=== PATIENT | female | born 1940 | race Caucasian/White ===

== ENCOUNTER → 2016-09-23 | Outpatient (CLI) | payer MEDICARE, OTHER ==
[~2016-09-23] MED LIST: ALEVE220 M1 PO; BYSTOLIC PO; CALCIUM 600 +1 EAC1 PO; CENTRUM PO; CLARITIN10 M3 PO; CLARITIN10 MG PO; DIAZEPAM PO; FISH OIL 1,0001 CAP PO; FOLIC ACID PO; FOSAMAX PO; GAS-X125 M1 PO; HYZAAR 100-12.51 TAB PO; LIPITOR PO; NICORETTE GUM; NICORETTE4 MG; NORVASC PO; THIAMINE HCL100 MG PO; TUMS
--- NOTE | ~2016-09-23 | CT57 ---
[facility] A Service of [facility] RADIOLOGY TEXT RESULTS PATIENT: GISSEL LUNA LOCATION: [facility] : 38 UNIT #: [id number] AGE: [address]: Lj Gallo MD SEX: F ORDER DR: [id number] [facility] [address] [place], [place] [address] [id number] O MR#: [id number] Acc #: [id number] NAME: GISSEL LUNA : 1940 SEX: F STUDY DATE/TIME: 09/23/2016 12:10 UNIT: [facility] ROOM: STUDY DESCRIPTION: CT Chest Wo Cont Attending Physician: Lj Gallo M.D. Referring Physician: Lj Gallo M.D. Ordering Physician: Lj Gallo M.D. Primary Care Physician: Ashok Jurado M.D. MEDICAL IMAGING REPORT This report is preliminary unless electronic signature is present EXAM CT chest without contrast, 09/23/2016, 1210 hours. CLINICAL HISTORY 75-year-old woman with history of both lung cancer and breast cancer, status post radiation therapy. Patient complains of left chest pain since July 2016. 6-month followup. Observation for suspected malignant neoplasm. COMPARISON Chest CT 03/05/2016, 12/20/2015, and PET/CT 10/24/2015. TECHNIQUE Helical noncontrasted images were obtained from the thoracic inlet through the adrenal glands. Sagittal and coronal reconstructions were performed. Total exam DLP 570 mGy-cm. This CT exam was performed with one or more of the following radiation dose reduction techniques: automatic exposure control, adjustment of mA and/or kV according to patient size, and iterative reconstruction. FINDINGS Images through the thoracic inlet demonstrate stable calcifications left lobe of thyroid without discrete mass or enlargement. Images through the chest demonstrate no pathologic adenopathy. There is atherosclerotic change in the aorta and coronary arteries. Cardiac chambers, pericardium are normal. Small hiatal hernia is unchanged. The lungs again demonstrate extensive emphysematous change bilaterally. The spiculated nodule in the anterior left apex has decreased in size and density with now residual mostly linear density measuring 9 x 4 mm, previously 10 x 8 mm, likely a positive response to radiation therapy. [facility] A Service of [facility] RADIOLOGY TEXT RESULTS PATIENT: GISSEL LUNA LOCATION: [facility] : 38 UNIT #: [id number] AGE: [address]: Lj Gallo MD SEX: F ORDER DR: There are no new or developing nodules. Tiny nodule medially in the lingula and anteriorly in the right middle lobe unchanged and likely benign. Limited views through the upper abdomen demonstrate no gallstones. The adrenal glands are normal. There is a cyst in the medial mid-right kidney unchanged. IMPRESSION 1. Interval decrease in size and density of spiculated nodule in the left upper lobe, likely a positive response to radiation therapy. Residual linear density measures 9 x 4 mm, previously 10 x 8 mm. 2. Emphysematous change with no new or developing nodules or adenopathy. Dictated by... Amber Bains M.D. THIS IS AN ELECTRONICALLY VERIFIED REPORT Amber Bains M.D. at 09/23/2016 5:53 PM YAO/helen TD: 09/23/2016 14:52 JOB #: [id number] MEDICAL IMAGING REPORT COPY
--- NOTE | ~2016-09-23 | MY6 ---
[facility] A Service [facility] RADIOLOGY TEXT RESULTS PATIENT: GISSEL LUNA LOCATION: [facility] : 38 UNIT #: [id number] AGE: [address]: Lj Gallo MD SEX: F ORDER DR: [id number] [address] [address] [id number] O MR#: [id number] Acc #: [id number] NAME: GISSEL LUNA : 1940 SEX: F STUDY DATE/TIME: 09/23/2016 13:18 UNIT: [facility] ROOM: STUDY DESCRIPTION: MY Mammogram Dx Dig Pradeep Attending Physician: Lj Gallo M.D. Referring Physician: Lj Gallo M.D. Ordering Physician: Lj Gallo M.D. Primary Care Physician: Ashok Jurado M.D. MEDICAL IMAGING REPORT This report is preliminary unless electronic signature is present EXAM Bilateral digital diagnostic mammogram. DATE OF EXAM 09/23/2016 INDICATION Previous left breast cancer diagnosed in 2014 with lumpectomy. COMPARISON STUDIES 09/18/2015 and 04/04/2015. TECHNIQUE MLO and CC digital views of each breast were obtained. There is also an exaggerated lateral CC view of each breast and a straight mediolateral view of the left breast. FINDINGS The breasts are heterogenously dense. There are no masses or abnormal calcifications. What was presumably seen as seroma in the medial left breast has diminished in density. IMPRESSION No evidence of malignancy. No significant change. BIRADS category 2N. Patients over the age of 40 are entered into a reminder system with target due date for the next mammogram. A result letter will also be sent to the patient. BIRADS: 2 Benign findings. [facility] A Service [facility] RADIOLOGY TEXT RESULTS PATIENT: GISSEL LUNA LOCATION: [facility] : 38 UNIT #: [id number] AGE: [address]: Lj Gallo MD SEX: F ORDER DR: Dictated by... Shon Lugo M.D. THIS IS AN ELECTRONICALLY VERIFIED REPORT Shon Lugo M.D. at 09/23/2016 4:55 PM GENESIS/gabbi TD: 09/23/2016 16:14 JOB #: [id number] MEDICAL IMAGING REPORT COPY
== END | disposition home or self-care (01) ==
LOC: CCAT 11:49
DX: Z08 Encounter for follow-up examination after completed treatment for malignant neoplasm (principal); J43.9 Emphysema, unspecified; R91.1 Solitary pulmonary nodule; J98.4 Other disorders of lung; Z85.118 Personal history of other malignant neoplasm of bronchus and lung; Z85.3 Personal history of malignant neoplasm of breast; Z92.3 Personal history of irradiation
CPT/HCPCS: 71250; G0204

== ENCOUNTER → 2017-03-23 | Outpatient (CLI) | payer MEDICARE, OTHER ==
--- NOTE | ~2017-03-23 | CT57 ---
[facility] A Service of [facility] RADIOLOGY TEXT RESULTS PATIENT: GISSEL LUNA LOCATION: [facility] : 38 UNIT #: [id number] AGE: [address]: Lj Gallo MD SEX: F ORDER DR: [id number] [address] [id number] [facility] [place], [place] [address] [id number] O MR#: [id number] Acc #: [id number] NAME: GISSEL LUNA : 1940 SEX: F STUDY DATE/TIME: 03/23/2017 13:21 UNIT: [facility] ROOM: STUDY DESCRIPTION: CT Chest Wo Cont Attending Physician: Lj Gallo M.D. Ordering Physician: Lj Gallo M.D. Primary Care Physician: Ashok Jurado M.D. MEDICAL IMAGING REPORT This report is preliminary unless electronic signature is present EXAM CT chest without contrast INDICATION Breast cancer and lung cancer. This is a yearly followup. The patient does have a history of radiation therapy. Prior lung cancer was in the left upper lobe. This exam was requested for surveillance for metastatic disease. TECHNIQUE Axial CT images were obtained from the thoracic inlet through the dome of the diaphragm. CT images were obtained from the thoracic inlet through the dome of the diaphragm. No intravenous contrast material was administered. This CT exam was performed with one or more of the following radiation dose reduction techniques: automatic exposure control, adjustment of mA and/or kV according to patient size, and iterative reconstruction. FINDINGS The patient has a 1.0 cm x 0.5 cm nodule within the left upper lobe, which I do not think is really significantly changed when compared to the exam from September 2016. Patient has an additional 3 mm noncalcified pulmonary nodule within the right middle lobe which is stable when compared to the exam of September 2015. This is favored to be benign. There is dystrophic calcification identified within the thyroid gland. Trachea and esophagus appear unremarkable. There is no pleural or pericardial effusion. Mediastinal lymph nodes do not appear pathologically enlarged. Thoracic aorta measures within normal size limits. There are coronary artery calcifications. [facility] A Service of [facility] RADIOLOGY TEXT RESULTS PATIENT: GISSEL LUNA LOCATION: [facility] : 38 UNIT #: [id number] AGE: [address]: Lj Gallo MD SEX: F ORDER DR: The patient has a right renal cyst and possible nonobstructing stone within the right kidney although this also could be in vascular calcification. There is a low-attenuation lesion which is seen within the right hepatic lobe which has been stable, probably when compared to exams dating back to September 2015. This is favored to be benign. I do not see any acute abnormalities within the upper abdomen. Review of bony windows does not demonstrate any aggressive osseous abnormalities. IMPRESSION. 1. Stable appearance to a previously treated focus within the left upper lobe when compared to the exam from September 23, 2016. No new lesions are seen. There is also a 3 mm nodule seen within the right middle lobe which has been stable since September 2015 and is favored to be benign. 2. Low-attenuation focus seen within the right hepatic lobe near the gallbladder fossa is also probably stable when compared to exams dating back to September 2015 and I do not see any convincing evidence of metastatic disease to the upper abdomen. Dictated by... Anne Padilla M.D. THIS IS AN ELECTRONICALLY VERIFIED REPORT Anne Padilla M.D. at 03/25/2017 2:45 PM CHARLENE/hira TD: 03/24/2017 22:47 JOB #: [id number] MEDICAL IMAGING REPORT Page 1 of 1 COPY
== END | disposition home or self-care (01) ==
LOC: CCAT 12-21 11:00
DX: C34.12 Malignant neoplasm of upper lobe, left bronchus or lung (principal); R91.1 Solitary pulmonary nodule; Z85.3 Personal history of malignant neoplasm of breast
CPT/HCPCS: 71250